=== PATIENT | female | born 1985 | race African-American/Black ===

== ENCOUNTER 2018-03-01 19:04 | Emergency (ER) | payer MEDICAID ==
[~2018-03-01] VITALS: Ht 160 cm; Wt 84.8 kg
[2018-03-01 19:23] VITALS: BP 154/114
[2018-03-01] MEDS ORDERED: HydrALAZINE 10mg Tab ORAL ONE (20:00)
[2018-03-01 20:52] VITALS: BP 122/86
[2018-03-01] MEDS ORDERED: CABERGOLINE0.5 MG PO (21:04)
[2018-03-01] MEDS ORDERED: CHLORTHALIDONE25 MG ORAL (21:04)
[2018-03-01 21:09] LABS: APPEARANCE,URINE CLEAR; BILIRUBIN, URINE NEGATIVE (NEGATIVE); COLOR,URINE PALE YELLOW; GLUCOSE, URINE (UA) NEGATIVE (NEGATIVE); KETONES,URINE NEGATIVE (NEGATIVE); LEUKOCYTE ESTERASE ,URINE NEGATIVE (NEGATIVE); NITRITE,URINE NEGATIVE (NEGATIVE); PH,URINE 6 (4.5-8.0); PROTEIN,URINE NEGATIVE (NEGATIVE); UROBILINOGEN,URINE NORMAL MG/DL (0.0-1.0)
[2018-03-01 21:38] VITALS: BP 130/91
--- NOTE | 2018-03-01 21:52 | Emergency Room Report ---
History of Present Illness General Chief Complaint: Generalized Weakness Source: Patient Present Illness HPI 32-year-old female presents to the emergency department complaining of 8 out of 10 in severity progressive headache for almost 2 weeks. Patient also reports elevated blood pressure and feeling of fatigue. Patient reports history of prolactinoma for which she is currently taking Dostinex for. Patient also reports that she takes 25 mg hydrochlorothiazide. Patient states that her blood pressure consistently has had diastolic readings over 100. Denies neck pain or stiffness. Denies CP, Palpitations, LOC, AMS, dizziness, Changes in Vision, Sensation, paresthesias, Nausea, vomiting or a sudden severe headache. Pt reports has appt with PCP this ( in 2 days). Allergies: Coded Allergies: PENICILLINS (Verified Allergy, Unknown, 03/01/18) Patient History Past Medical History: HTN, other - prolactinoma Past Surgical History: none Pertinent Family History: none Last Menstrual Period: 02/17/18 Now: No Immunizations: UTD Reviewed Nursing Documentation: PMH: Agreed; PSxH: Agreed Nursing Documentation-PMH Past Medical History: No History, Except For Hx Hypertension: Yes Hx Cancer: Yes - prolactinoma 09/2015 Review of Systems All Other Systems: negative except mentioned in HPI Physical Exam Vital Signs Date Time Temp Pulse Resp B/P (MAP) Pulse Ox O2 Delivery O2 Flow Rate FiO2 03/01/18 19:13 98.2 97 16 146/105 96 03/01/18 19:23 Room Air Sp02 EP Interpretation: reviewed, normal General Appearance: no apparent distress, alert, GCS 15, non-toxic Head: normocephalic, atraumatic Eyes: bilateral eye normal inspection, bilateral eye PERRL, bilateral eye other - no photophobia ENT: hearing grossly normal, normal voice Neck: full range of motion, no meningismus, no bony tend Respiratory: chest non-tender, lungs clear, normal breath sounds, speaking full sentences Cardiovascular #1: regular rate, rhythm Gastrointestinal: normal bowel sounds, non tender, soft Genitourinary: normal inspection, no CVA tenderness Musculoskeletal: back normal, gait/station normal, normal range of motion, non- tender Neurologic: alert, oriented x3, responsive, motor strength/tone normal, sensory intact, normal gait, speech normal, other - no facial droop, equal educational paraprofessional strength, grossly normal Psychiatric: judgement/insight normal Skin: normal color, no rash, warm/dry, well hydrated Lymphatic: no adenopathy Medical Decision Making PA Attestation Dr. Ingram is my supervising Physician whom patient management has been discussed with. Diagnostic Impression: Primary Impression: Headache Qualified Codes: R51 - Headache Additional Impression: Elevated blood pressure reading ER Course 32-year-old female presents to the emergency department complaining of 8 out of 10 in severity progressive headache for almost 2 weeks. Patient also reports elevated blood pressure and feeling of fatigue. Patient reports history of prolactinoma for which she is currently taking Dostinex for. Patient also reports that she takes 25 mg hydrochlorothiazide. Patient states that her blood pressure consistently has had diastolic readings over 100. Denies neck pain or stiffness. Denies CP, Palpitations, LOC, AMS, dizziness, Changes in Vision, Sensation, paresthesias, Nausea, vomiting or a sudden severe headache. Pt reports has appt with PCP this ( in 2 days). Ddx considered but are not limited to migraine, SAH, Pseudomotor Cerebri,, Mass lesion, Cluster FUENTES, Tension FUENTES, Post lumbar puncture FUENTES. Vital signs: are WNL, pt. is afebrile H&PE are most consistent with migraine headache ORDERS: - UA: unremarkable - Hcg: Negative CT Head no contrast: Unremarkable-Per official radiology report- Please see report for specific details. ED INTERVENTIONS: - Reglan PO - Hydralazine PO -Tylenol PO - BP has reduced some. Since patient has an appointment arty scheduled in 2 days with her primary care if feel comfortable with her current presentation that she is stable for close outpatient follow-up. Discussed with this patient concerning symptoms that would indicate prompt return to the emergency department and she voices her understanding and agreement with this treatment plan. DISCHARGE: At this time pt. is stable for d/c to home. Will provide printed patient care instructions, and any necessary prescriptions. Care plan and follow up instructions have been discussed with the patient prior to discharge. Labs Test 03/01/18 20:31 Urine Color Pale yellow Urine Appearance Clear Urine pH 6 (4.5-8.0) Urine Specific [place] 1.010 (1.005-1.035) Urine Protein Negative (NEGATIVE) Urine Glucose (UA) Negative (NEGATIVE) Urine Ketones Negative (NEGATIVE) Urine Blood Negative (NEGATIVE) Urine Nitrite Negative (NEGATIVE) Urine Bilirubin Negative (NEGATIVE) Urine Urobilinogen Normal MG/DL (0.0-1.0) Urine Leukocyte Esterase Negative (NEGATIVE) Urine HCG, Qualitative Negative (NEGATIVE) CT/MRI/US Diagnostic Results CT/MRI/US Diagnostic Results : Imaging Test Ordered: CT Head no contrast Impression : Unremarkable-Per official radiology report- Please see report for specific details. Last Vital Signs Date Time Temp Pulse Resp B/P (MAP) Pulse Ox O2 Delivery O2 Flow Rate FiO2 03/01/18 21:38 98.2 75 17 130/91 98 Room Air Disposition: HOME, SELF-CARE Condition: Stable Scripts Amlodipine Besylate (Norvasc) 2.5 Mg Tablet 2.5 MG ORAL DAILY for 7 Days, #7 TAB Prov: Cassandra Haley 03/01/18 Referrals: NOT CHOSEN IPA/MD,REFERRING (PCP) Patient Instructions: Form - Blood Pressure Record Sheet, General Headache Without Cause, Managing Your High Blood Pressure Additional Instructions: Take medications as directed. Follow up with a Primary Care Provider in 3-5 days, even if your symptoms have resolved. --Please review list of primary care clinics, if you do not already have a primary care provider Return sooner to ED if new symptoms occur, or current symptoms become worse. - Please note that this Emergency Department Report was dictated using [employer] inventory clerk technology software, occasionally this can lead to erroneous entry secondary to interpretation by the dictation equipment. Cassandra Haley Mar 01, 2018 21:52
[2018-03-01] MEDS ORDERED: NORVASC2.5 MG ORAL (21:54)
[2018-03-01 22:11] VITALS: BP 131/98
--- NOTE | 2018-03-02 10:39 | Diagnostic Imaging Report ---
Indication: Headache Technique: Contiguous 5 mm thick transaxial imaging of the head obtained in a Siem[employer] Sensation [address] scanner. Soft tissue and bone windows generated. Automatic Exposure Control was utilized. Total Dose length Product (DLP): 1414.[address] Dose Index Volume (CTDIvol): 70.38 mGy Comparison: none Findings: The size and configuration of the cortical sulci, basal cisterns, and ventricles are within normal limits for age. There is no mass effect, midline shift, or edema identified. There is no evidence of acute hemorrhage or abnormal intra-axial or extra-axial fluid collections. The bones and soft tissues are unremarkable. Impression: No mass effect, edema or acute bleed. [facility] has communicated the preliminary results to the Emergency Department. Their findings are largely concordant with this report. The CT scanner at [facility] is accredited by the [employer] and the scans are performed using dose optimization techniques as appropriate to a performed exam including Automatic Exposure control.
== END 2018-03-01 22:09 | disposition home or self-care (01) ==
LOC: EMR 19:33
DX: R51 Headache (principal); I10 Essential (primary) hypertension; Z88.0 Allergy status to penicillin; Z85.89 Personal history of malignant neoplasm of other organs and systems
CPT/HCPCS: 70450; 81003; 81025; 99284